=== PATIENT | male | born 1950 | race Caucasian/White ===

== ENCOUNTER → 2018-08-15 | Outpatient (CLI) | payer MEDICARE, OTHER ==
--- NOTE | 2018-08-15 15:25 | EKG ---
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
[2018-08-15 15:39] LABS: BASO % 0 % (0-3); EOS # 0.1 x10^3/uL (0.0-0.7); EOS % 1 % (0-3); HEMATOCRIT 50.9 % (39.0-53.0); HEMOGLOBIN 17.1 g/dL (13.0-17.5); LYMPH # 1.4 x10^3/uL (1.0-4.8); LYMPH % 18 % (24-48); MEAN CORPUSCULAR HEMOGLOBIN 29 pg (25-35); MEAN CORPUSCULAR HGB CONC 34 g/dL (31-37); MEAN CORPUSCULAR VOLUME 85 fL (79-100); MONO # 0.5 x10^3/uL (0.0-1.1); MONO % 7 % (0-9); NEUT # 5.5 x10^3uL (1.8-7.7); NEUT % 73 % (31-73); PLATELET COUNT 213 x10^3/uL (140-400); RED BLOOD COUNT 5.97 x10^6/uL (4.30-5.70); RED CELL DISTRIBUTION WIDTH 13.2 % (11.5-14.5); WHITE BLOOD COUNT 7.5 x10^3/uL (4.0-11.0)
[2018-08-15 16:01] LABS: BARBITURATES NEG (NEG); BENZODIAZEPINES NEG (NEG); CANNABINOIDS NEG (NEG); COCAINE NEG (NEG); METHADONE NEG (NEG); OPIATES NEG (NEG); PHENCYCLIDINE NEG (NEG)
[2018-08-15 16:07] LABS: AMPHETAMINE/METHAMPHETAMINE NEG (NEG)
[2018-08-15 16:11] LABS: ALBUMIN/GLOBULIN RATIO 1.1 (1.0-1.7); CALCIUM 9.8 mg/dL (8.5-10.1); CREATININE 1.3 mg/dL (0.7-1.3); GFR 54.9; POTASSIUM 4.5 mmol/L (3.5-5.1); TOTAL BILIRUBIN 0.5 mg/dL (0.2-1.0); TOTAL PROTEIN 7.8 g/dL (6.4-8.2)
== END | disposition home or self-care (01) ==
LOC: LAB 14:57
PROVIDERS: ATTEND Psychiatry & Neurology Neurology
DX: R25.9 Unspecified abnormal involuntary movements (principal); R00.0 Tachycardia, unspecified
CPT/HCPCS: 36415; 80053; 80307; 82607; 84443; 85025; 93005

== ENCOUNTER → 2018-08-28 | Outpatient (CLI) | payer MEDICARE, OTHER ==
--- NOTE | 2018-09-03 21:17 | EEG ---
DATE OF SERVICE: 08/28/2018 EEG NUMBER: [id number] OBJECTIVE: This is a 68-year-old male patient with history of abnormal movements. EEG was requested to help rule out seizure. METHODS: Twenty electrodes were applied according to the international 10-20 electrode placement system. EKG monitoring, hyperventilation, intermittent photic stimulation, monopolar and bipolar montages are routinely utilized. The record was obtained on a digital system with video monitoring. FINDINGS: 1. Background: The patient was recorded in the awake, drowsy and sleep states. The overall background amplitude is 10-20 microvolts. A posterior dominant rhythm of 8-10 Hz is observed. 2. Abnormalities: No specific epileptiform discharge or electrographic seizure is seen. No focal or diffuse slowing. 3. Activation: Hyperventilation was performed with good efforts and normal response. Intermittent photic stimulation was performed with photic driving. IMPRESSION: This EEG is a normal study for the awake, drowsy and sleep states. No focal, lateralizing, specific epileptiform discharge or electrographic seizure is seen. PERCY MORALES MD DR: TOMI/dave JOB#: [id number] / [id number] SANDEEP
== END | disposition home or self-care (01) ==
LOC: RT 09:58
PROVIDERS: ATTEND Psychiatry & Neurology Neurology
DX: R25.9 Unspecified abnormal involuntary movements (principal)
CPT/HCPCS: 95816

== ENCOUNTER 2020-03-11 15:49 | Emergency (ER) | payer MEDICARE, OTHER ==
[~2020-03-11] VITALS: Ht 180.3 cm; Wt 100.0 kg
[2020-03-11 16:11] LABS: BASO # 0.1 x10^3/uL (0.0-0.2); BASO % 1 % (0-3); EOS # 0.2 x10^3/uL (0.0-0.7); EOS % 2 % (0-3); HEMATOCRIT 49.5 % (39.0-53.0); HEMOGLOBIN 17.2 g/dL (13.0-17.5); LYMPH % 28 % (24-48); MEAN CORPUSCULAR HEMOGLOBIN 29 pg (25-35); MEAN CORPUSCULAR HGB CONC 35 g/dL (31-37); MEAN CORPUSCULAR VOLUME 85 fL (79-100); MONO % 9 % (0-9); NEUT # 6.6 x10^3/uL (1.8-7.7); NEUT % 60 % (31-73); PLATELET COUNT 263 x10^3/uL (140-400); RED BLOOD COUNT 5.86 x10^6/uL (4.30-5.70); RED CELL DISTRIBUTION WIDTH 13.2 % (11.5-14.5); WHITE BLOOD COUNT 10.9 x10^3/uL (4.0-11.0)
--- NOTE | 2020-03-11 16:19 | PHYS DOC ---
Past Medical History Past Medical History: Diabetes-Type II Additional Past Surgical Histo: BACK SURGERY Smoking Status: Never Smoker Alcohol Use: None General Adult EDM: Chief Complaint: HYPOGLYCEMIA HPI: HPI: 69-year-old male presenting the emergency department today after having low blood sugar. He has type 2 diabetes and takes insulin regularly. Today he took 45 units of short acting insulin at lunch but did not eat afterwards. He denies taking insulin this morning and had some cereal for breakfast. He reports he did take some long-acting insulin last night. He denies vomiting fevers or chills. He got mildly confused and paramedics were called. He was given orange juice and upon their arrival his blood sugar had come up and he was coherent. He was brought in for further treatment and care. Currently he is asymptomatic. ROS neg for cp/n/v/f/c/soa. All other ros is neg unless otherwise note in HPI. ED course: 69-year-old male presenting after having a hypoglycemic episode. Upon arrival patient's blood sugar was normal and he was mentating appropriately. Blood work is unremarkable. He was able to eat here in the emergency department and feels much better. He was monitored for a short period and remains asymptomatic. We will discharge him to follow-up with PCP. I reminded him that when he takes insulin he needs to eat as well. Heart Score: Risk Factors: Risk Factors: DM, Current or recent (<one month) smoker, HTN, HLP, family history of CAD, obesity. Risk Scores: Score 0 - 3: 2.5% MACE over next 6 weeks - Discharge Home Score 4 - 6: 20.3% MACE over next 6 weeks - Admit for Clinical Observation Score 7 - 10: 72.7% MACE over next 6 weeks - Early Invasive Strategies Allergies: Allergies: Allergies Coded Allergies Type Severity Reaction Last Updated Verified No Known Drug Allergies 03/11/20 No Physical Exam: PE: Constitutional: Well developed, well nourished, no acute distress, non-toxic appearance. [] HENT: Normocephalic, atraumatic, bilateral external ears normal, oropharynx moist, no oral exudates, nose normal. [] Eyes: PERRLA, EOMI, conjunctiva normal, no discharge. [] Neck: Normal range of motion, no tenderness, supple, no stridor. [] Cardiovascular:Heart rate regular rhythm, no murmur [] Lungs & Thorax: Bilateral breath sounds clear to auscultation [] Abdomen: Bowel sounds normal, soft, no tenderness, no masses, no pulsatile masses. [] Skin: Warm, dry, no erythema, no rash. [] Back: No tenderness, no CVA tenderness. [] Extremities: No tenderness, no cyanosis, no clubbing, ROM intact, no edema. [] Neurologic: Alert and oriented X 3, normal motor function, normal sensory function, no focal deficits noted. [] Psychologic: Affect normal, judgement normal, mood normal. [] Current Patient Data: Labs: Laboratory Tests Test 03/11/20 15:54 Glucose (Fingerstick) 90 mg/dL (70-99) Vital Signs: Vital Signs Date Time Temp Pulse Resp B/P (MAP) Pulse Ox O2 Delivery O2 Flow Rate FiO2 03/11/20 15:52 97.6 68 20 152/83 (106) 98 Room Air 97.6 EKG: EKG: [] Radiology/Procedures: Radiology/Procedures: [] Course & Med Decision Making: Course & Med Decision Making Pertinent Labs and Imaging studies reviewed. (See chart for details) [] Dragon Disclaimer: Dragon Disclaimer: This electronic medical record was generated, in whole or in part, using a voice recognition dictation system. Departure Departure Impression: Primary Impression: Hypoglycemia Disposition: 01 HOME, SELF-CARE Condition: STABLE Referrals: BHAKTI TRUJILLO MD (PCP) Patient Instructions: Hypoglycemia (Low Blood Sugar) Justicifation of Admission Dx: Justifications for Admission: Justification of Admission Dx: VAMSI Ramírez MD Mar 11, 2020 16:19
[2020-03-11 16:40] LABS: CALCIUM 9.2 mg/dL (8.5-10.1); CREATININE 1.1 mg/dL (0.7-1.3); GFR 66.4; POTASSIUM 3.7 mmol/L (3.5-5.1)
[2020-03-11 16:45] LABS: ALBUMIN 3.6 g/dL (3.4-5.0); ALBUMIN/GLOBULIN RATIO 1.2 (1.0-1.7); TOTAL BILIRUBIN 0.5 mg/dL (0.2-1.0); TOTAL PROTEIN 6.7 g/dL (6.4-8.2)
[2020-03-11 17:21] LABS: BILIRUBIN,URINE SMALL (NEG); CLARITY,URINE CLEAR; COLOR,URINE YELLOW; NITRITE,URINE NEGATIVE (NEG); PROTEIN,URINE NEGATIVE (NEG-TRACE); UROBILINOGEN,URINE 0.2 mg/dL (0.2 mg/dL)
[2020-03-11 17:28] LABS: HYALINE CASTS, URINE FEW /HPF
[2020-03-11 17:29] LABS: BACTERIA,URINE 0 /HPF (0-FEW); RBC,URINE 0 /HPF (0-2)
[2020-03-11 18:00] VITALS: BP 120/72
== END 2020-03-11 18:10 | disposition home or self-care (01) ==
LOC: ER 15:49
DX: E11.649 Type 2 diabetes mellitus with hypoglycemia without coma (principal); R41.0 Disorientation, unspecified; Z98.890 Other specified postprocedural states
CPT/HCPCS: 36415; 80053; 81001; 82962; 85025; 99285

== ENCOUNTER → 2021-11-23 | Outpatient (CLI) | payer MEDICARE, OTHER ==
--- NOTE | 2021-11-23 13:37 | KCIC ---
EXAM: MRI RIGHT SHOULDER WITHOUT CONTRAST INDICATION: Right shoulder pain and limited range of motion since a fall 4 months ago. COMPARISON: None TECHNIQUE: Multiplanar, multisequence imaging of the right shoulder without contrast. FINDINGS: Exam is limited by motion artifact. ROTATOR CUFF: There is a complete full-thickness tear of the supraspinatus tendon with retraction of most fibers to the medial aspect of the humeral head. Some of the bursal sided fibers are retracted t o the mid humeral head. There is tendinopathy of the infraspinatus tendon. Full-thickness tear of the subscapularis tendon extending from the upper distal tendon inferomedially toward the myotendinous j unction (image 12-17 axial series). No retraction of the subscapularis tendon. Teres minor tendon is intact. No significant muscle atrophy or edema. Mild fluid extending along the subscapularis muscle. LABRUM: There is degenerative fraying of the superior labrum. BICEPS TENDON: There is medial subluxation of the biceps tendon which is perched on the edge of the b icipital groove. Probable small longitudinal split tear of the biceps tendon as it enters groove. ACROMIOCLAVICULAR JOINT: Moderate acromioclavicular degenerative joint disease with large inferior cl avicular osteophytes. Type II acromion. GLENOHUMERAL JOINT: No full-thickness cartilage defects. Alignment is normal. There is marrow edema a t the lesser tuberosity. Marrow signal is otherwise normal. OTHER: There is a joint effusion communicating with the subacromial-subdeltoid bursa. The subcoracoid space is narrowed measuring 3 mm. IMPRESSION: 1. Complete full-thickness tear of the supraspinatus tendon with most of the tendon retracted to the medial humeral head. Some bursal sided fibers are only retracted to the mid humeral head. 2. Full-thickness tear of the subscapularis tendon. Narrowed coracohumeral interval suspicious for shaikh bcoracoid impingement. 3. Medial subluxation the biceps tendon with small longitudinal split tear as it enters the groove. 4. Moderate acromioclavicular degenerative joint disease with large inferior osteophytes. 5. Joint effusion communicating with the subacromial-subdeltoid bursa and extending along the subscap ularis muscle. Electronically signed by: Paz Alvarado MD (11/23/2021 1:34 PM) [id number]
--- NOTE | 2021-11-23 13:57 | KCIC ---
EXAMINATION: MRI LEFT LOWER EXTREMITY JOINT WITHOUT INDICATIONS: Left knee pain anteriorly after fall 4 months ago. TECHNIQUE: Multiplanar multisequence MRI of the left knee was obtained without contrast. COMPARISON: MRI left knee 02/24/2015 FINDINGS: MENISCI: There is a new small radial tear at the posterior root horn junction medial meniscus. Sligh tly increased 3 mm extrusion. There is increased degenerative tearing of the posterior horn and poste rior root medial meniscus. Unchanged degenerative tear of the posterior horn lateral meniscus. There is abnormal signal and mild globular appearance of the posterior root lateral meniscus, also unchange d. LIGAMENTS: The anterior and posterior cruciate ligaments are intact. The medial collateral ligament and lateral collateral ligament complex are intact. EXTENSOR MECHANISM: Quadriceps tendon is intact. Mild thickening of the distal patellar tendon with chronic fragmentation of the tibial tubercle is redemonstrated. Marrow edema in the tibial tubercle o ssicles has decreased. A small interstitial tear in the central distal patellar tendon along the deep surface is unchanged measuring 3 x 5 x 9 mm. Fat pads are normal. Retinacula are intact. BONES AND CARTILAGE: No acute fracture. There is mildly worsened deep partial-thickness cartilage lo ss throughout the medial compartment. New subchondral cysts and marrow edema in the medial tibial arun teau. There is a worsened focal, now full-thickness cartilage defect in the posterior lateral femoral condyle. Predominant superficial cartilage loss elsewhere in the lateral compartment is unchanged. T here is unchanged to slightly worsened superficial and deep partial-thickness cartilage loss along th e lateral patellar facet and trochlear groove. Small subchondral cysts in the patella. Small tricompa rtment osteophytes. OTHER: Decreased, now small joint effusion. Decreased size of Menard cyst, now 2.0 x 1.4 x 6.0 cm. Pr eviously seen debris in the Menard cyst is no longer seen. Extensive diffuse subcutaneous edema has mo stly resolved. There is mild prepatellar edema. Muscles and remaining tendons are intact. IMPRESSION: 1. New radial tear at the posterior root horn junction medial meniscus and increased degenerative tea ring of the posterior horn and root medial meniscus. 2. Unchanged old lateral meniscus tear. 3. Mildly worsened tricompartmental compartment cartilage loss. 4. Unchanged sequela of Jd-Schlatter's disease and small interstitial tear in the distal patellar tendon. 5. Decreased joint effusion and Menard's cyst. Decreased subcutaneous edema. Electronically signed by: Paz Alvarado MD (11/23/2021 1:54 PM) [id number]
== END ==
LOC: KCIC MRI 08:10
PROVIDERS: ATTEND Nurse Practitioner Adult Health
DX: S46.011A Strain of muscle(s) and tendon(s) of the rotator cuff of right shoulder, initial encounter (principal); S83.242A Other tear of medial meniscus, current injury, left knee, initial encounter; S83.282A Other tear of lateral meniscus, current injury, left knee, initial encounter; S43.081A Other subluxation of right shoulder joint, initial encounter; M25.462 Effusion, left knee; R60.0 Localized edema; M71.22 Synovial cyst of popliteal space [Baker], left knee; M25.411 Effusion, right shoulder; M92.522 Juvenile osteochondrosis of tibia tubercle, left leg; M75.51 Bursitis of right shoulder; M17.12 Unilateral primary osteoarthritis, left knee; M19.011 Primary osteoarthritis, right shoulder; M62.838 Other muscle spasm; X58.XXXA Exposure to other specified factors, initial encounter; Y93.89 Activity, other specified; Y92.89 Other specified places as the place of occurrence of the external cause; Y99.8 Other external cause status
CPT/HCPCS: 73221; 73721